=== PATIENT | male | born 1955 | race Caucasian/White ===

== ENCOUNTER 2019-12-27 17:39 | Outpatient (REF) | payer OTHER, MEDICAID, SELFPAY ==
[2019-12-27 21:14] LABS: ALT 52 U/L (16-63); AST 42 U/L (15-37); Alkaline Phosphatase 63 U/L (46-116); Anion Gap 8.6 mmol/L (3-11); BUN 18 mg/dL (7-18); Bilirubin, Total 0.8 mg/dL (0.2-1.0); CO2 28.4 mmol/L (21.0-32.0); CREATININE 1.32 mg/dL (0.70-1.30); Chloride 97 mmol/L (98-107); Estimated GFR 54.61 (mL/min/1.73m2); Glucose 110 mg/dL (74-106); Potassium 3.4 mmol/L (3.5-5.1); Sodium 134 mmol/L (136-145); Total Protein 7.1 g/dL (6.4-8.2)
== END 2019-12-27 17:59 ==
LOC: NCHCN 17:39
PROVIDERS: PCP Family Medicine; Visit Provider Family Medicine
DX: E78.6 Lipoprotein deficiency (principal); I10 Essential (primary) hypertension; R73.03 Prediabetes; E88.81 Metabolic syndrome and other insulin resistance; R79.89 Other specified abnormal findings of blood chemistry
CPT/HCPCS: 80053

== ENCOUNTER 2021-09-03 12:40 | Outpatient (REF) | payer MEDICARE, MEDICAID, SELFPAY ==
[2021-09-03 16:18] LABS: Hemoglobin A1C 6.1 % (<5.7)
[2021-09-03 17:01] LABS: ALT 42 U/L (16-63); AST 31 U/L (15-37); Albumin 4.4 g/dL (3.4-5.0); Alkaline Phosphatase 77 U/L (46-116); Anion Gap 8.5 mmol/L (3-11); BUN 27 mg/dL (7-18); Bilirubin, Total 0.6 mg/dL (0.2-1.0); CO2 27.5 mmol/L (21.0-32.0); CREATININE 1.3 mg/dL (0.70-1.30); Calcium 9.2 mg/dL (8.5-10.1); Chloride 102 mmol/L (98-107); Cholesterol 183 mg/dL (<200); Glucose 115 mg/dL (74-106); HDL Cholesterol 34 mg/dL (40-60); Potassium 3.9 mmol/L (3.5-5.1); Sodium 138 mmol/L (136-145); Total Protein 7.7 g/dL (6.4-8.2); Triglyceride 414 mg/dL (<150)
[2021-09-03 17:15] LABS: LDL CHOLESTEROL 87 mg/dL (<100)
== END 2021-09-03 12:41 | disposition home or self-care (01) ==
LOC: NCHCN 12:40
PROVIDERS: PCP Family Medicine; Visit Provider Family Medicine
DX: R73.03 Prediabetes (principal); R74.01 Elevation of levels of liver transaminase levels
CPT/HCPCS: 80053; 80061; 83721; 83036

== ENCOUNTER 2022-10-28 14:48 | Outpatient (REF) | payer MEDICARE, MEDICAID, SELFPAY ==
[2022-10-28 15:32] LABS: Anion Gap 9.1 mmol/L (3-11); BUN 27 mg/dL (7-18); CO2 26.9 mmol/L (21.0-32.0); CREATININE 1.4 mg/dL (0.70-1.30); Chloride 100 mmol/L (98-107); Estimated GFR 55.43 (mL/min/1.73m2); Glucose 160 mg/dL (74-106); Potassium 3.5 mmol/L (3.5-5.1); Sodium 136 mmol/L (136-145)
[2022-10-28 15:56] LABS: Hemoglobin A1C 6.4 % (<5.7)
== END 2022-10-28 14:49 | disposition home or self-care (01) ==
LOC: NCHCN 14:48
PROVIDERS: PCP Family Medicine; Visit Provider Family Medicine
DX: I10 Essential (primary) hypertension (principal); R73.03 Prediabetes; E87.6 Hypokalemia
CPT/HCPCS: 80048; 83036

== ENCOUNTER 2023-03-03 16:09 | Outpatient (REF) | payer MEDICARE, MEDICAID, SELFPAY ==
[2023-03-03 21:30] LABS: ALT 61 U/L (16-63); AST 44 U/L (15-37); Alkaline Phosphatase 67 U/L (46-116); Anion Gap 12.9 mmol/L (3-11); BUN 22 mg/dL (7-18); Bilirubin, Total 0.5 mg/dL (0.2-1.0); CO2 24.1 mmol/L (21.0-32.0); CREATININE 1.3 mg/dL (0.70-1.30); Calcium 9.5 mg/dL (8.5-10.1); Chloride 100 mmol/L (98-107); Cholesterol 156 mg/dL (<200); Estimated GFR 60.21 (mL/min/1.73m2); Glucose 120 mg/dL (74-106); HDL Cholesterol 32 mg/dL (40-60); Potassium 3.3 mmol/L (3.5-5.1); Sodium 137 mmol/L (136-145); Triglyceride 444 mg/dL (<150)
[2023-03-03 21:54] LABS: Hemoglobin A1C 6.4 % (<5.7)
[2023-03-03 22:30] LABS: LDL CHOLESTEROL 73 mg/dL (<100)
[2023-03-03 22:52] LABS: Vitamin D 25 Total 14.6 ng/mL (30-100)
== END 2023-03-03 16:10 | disposition home or self-care (01) ==
LOC: NCHCN 16:09
PROVIDERS: PCP Family Medicine; Visit Provider Family Medicine
DX: E11.9 Type 2 diabetes mellitus without complications (principal); E87.6 Hypokalemia; D64.9 Anemia, unspecified; I95.9 Hypotension, unspecified; R74.01 Elevation of levels of liver transaminase levels
CPT/HCPCS: 80053; 80061; 82306; 83721; 83036

== ENCOUNTER 2023-10-13 18:16 | Outpatient (REF) | payer MEDICARE, MEDICAID, SELFPAY ==
[2023-10-13 21:38] LABS: HCT 47.5 % (40.0-50.0); HGB 16.8 g/dL (13.5-17.5); MCH 31.5 pg (27.0-33.0); MCHC 35.4 % (32.0-36.0); MCV 89 fL (80-95); Platelet Count 192 10^3/uL (130-400); RBC 5.34 10^6/uL (4.36-5.78); RDW 12.7 % (11.8-14.1); RDW-SD 41.4 fL; WBC 8.93 10^3/uL (4.4-10.8)
[2023-10-13 22:05] LABS: Hemoglobin A1C 6.4 % (<5.7)
[2023-10-13 22:10] LABS: COMMENT (LAB VIEW ONLY) 158.42 mg/dL; Microalb ug/mg Crea 9.9 ug/mg Cr
[2023-10-13 22:16] LABS: ALT 47 U/L (16-63); AST 36 U/L (15-37); Albumin 4.2 g/dL (3.4-5.0); Alkaline Phosphatase 62 U/L (46-116); Anion Gap 10.5 mmol/L (3-11); BUN 29 mg/dL (7-18); Bilirubin, Total 0.6 mg/dL (0.2-1.0); CO2 27.5 mmol/L (21.0-32.0); CREATININE 1.4 mg/dL (0.70-1.30); Calcium 9.6 mg/dL (8.5-10.1); Calculated LDL 34 mg/dL (<100); Chloride 100 mmol/L (98-107); Cholesterol 142 mg/dL (<200); Estimated GFR 55.09 (mL/min/1.73m2); Folate 7.1 ng/mL (8.6-20.0); Glucose 120 mg/dL (74-106); HDL Cholesterol 37 mg/dL (40-60); Potassium 3.8 mmol/L (3.5-5.1); Sodium 138 mmol/L (136-145); Total Protein 7.9 g/dL (6.4-8.2); Triglyceride 358 mg/dL (<150); Vitamin B12 407 pg/mL (193-986)
== END 2023-10-13 18:17 | disposition home or self-care (01) ==
LOC: NCHCN 18:16
PROVIDERS: PCP Family Medicine; Visit Provider Family Medicine
DX: E11.9 Type 2 diabetes mellitus without complications (principal)
CPT/HCPCS: 80053; 80061; 85027; 82043; 82570; 82607; 82746; 83036

== ENCOUNTER 2025-03-28 14:56 | Outpatient (REF) | payer MEDICARE, MEDICAID, SELFPAY ==
[2025-03-28 21:01] LABS: Vitamin D 25 Total 26 ng/mL (30-100)
[2025-03-28 21:14] LABS: ALT 42 U/L (10-49); AST 42 U/L (<34); Albumin 4.7 g/dL (3.4-5.0); Alkaline Phosphatase 82 U/L (46-116); Anion Gap 5.7 mmol/L (3-11); BUN 24 mg/dL (9-23); Bilirubin, Total 0.50 mg/dL (0.2-1.2); CO2 24.3 mmol/L (20.0-31.0); Calcium 9.8 mg/dL (8.3-10.6); Chloride 106 mmol/L (98-107); Cholesterol 125 mg/dL (<200); Folate > 24.0 ng/mL (>5.38); Glucose 128 mg/dL (74-106); HDL Cholesterol 32 mg/dL (>40); Potassium 3.9 mmol/L (3.5-5.1); Sodium 136 mmol/L (136-145); Total Protein 7.8 g/dL (5.7-8.2); Vitamin B12 > 2000 pg/mL (211-911)
== END 2025-03-28 14:57 | disposition home or self-care (01) ==
LOC: NCHCN 14:56
PROVIDERS: PCP Family Medicine; Visit Provider Family Medicine
DX: E53.8 Deficiency of other specified B group vitamins (principal); E78.5 Hyperlipidemia, unspecified; E55.9 Vitamin D deficiency, unspecified
CPT/HCPCS: 80053; 80061; 82306; 82607; 82746